=== PATIENT | female | born 1960 | race Caucasian/White ===

== ENCOUNTER 2024-06-10 10:26 | Emergency (ER) | payer OTHER, MEDICAID, SELFPAY ==
[2024-06-10 10:26] VITALS: BP 129/84; PULSE 101; PULSE 130; RESP 20; TEMP 38.1; O2SAT 95
--- NOTE | 2024-06-10 10:42 | XR_ITS ---
Examination: PA lateral chest 2 views TECHNIQUE: Upright PA lateral chest 2 views Exam date and time: June 10, 2024 1055 hours INDICATIONS: Coughing shortness of breath beginning 2 days ago FINDINGS: Normal heart size. Lungs are clear. The osseous structures are intact IMPRESSION: No active disease
--- NOTE | 2024-06-10 10:43 | PD.EDRME ---
Rapid Medical Screening Exam RME Arrival date/time: 06/10/24 10:26 64-year-old female presents emergency department complaints of fever and back pain Chief Complaint: Back Pain/Injury Vital signs: Vital Signs Temperature 100.6 F H 06/10/24 10:26 Pulse Rate 130 H 06/10/24 10:26 Respiratory Rate 20 06/10/24 10:26 Blood Pressure 129/84 06/10/24 10:26 Pulse Oximetry (%) 95 06/10/24 10:26 Oxygen Delivery Method Room Air 06/10/24 10:26
[2024-06-10 11:04] LABS: Lactate (Lactic Acid) 1.3 mMol/L (0.4-2.0)
[2024-06-10 11:08] LABS: Basophils % (Auto) 0 % (0-2.5); Eosinophils # (Auto) 0.1 Thou/mm3 (0.0-0.5); Eosinophils % (Auto) 1 % (0-10); Hematocrit 43.7 % (36.0-46.0); Hemoglobin 14.5 g/dL (12.0-16.0); Immature Granulocytes % (Auto) 1 % (0-0); Immature Granulocytes Auto 0.05 Thou/mm3 (0.00-0.00); Lymphocytes # (Auto) 0.2 Thou/mm3 (1.0-4.8); Lymphocytes % (Auto) 2 % (10-50); Mean Corpuscular HGB Conc 33.2 g/dl (31.0-37.0); Mean Corpuscular Hemoglobin 30.6 pg (25.0-35.0); Mean Corpuscular Volume 92 fL (80-100); Monocytes # (Auto) 0.3 Thou/mm3 (0.0-0.8); Monocytes % (Auto) 3 % (0-12); Neutrophils # (Auto) 8.5 Thou/mm3 (1.8-7.7); Neutrophils % (Auto) 93 % (37-80); Nucleated Red Blood Cell % 0 /100 WBC (0); Platelet Count 256 Thou/mm3 (140-440); RDW Standard Deviation 47.5 fL (36.4-46.3); Red Blood Count 4.74 Miln/mm3 (4.00-5.20); White Blood Count 9.1 Thou/mm3 (3.6-11.0)
[2024-06-10 11:31] LABS: Alanine Aminotransferase 44 U/L (10-49); Albumin, Serum 4.7 gm/dL (3.4-4.8); Albumin/Globulin Ratio 1.5 (1.2-2.2); Alkaline Phosphatase 88 U/L (46-116); Anion Gap 8 (7-16); Aspartate Amino Transferase 46 U/L (0-34); BUN/Creatinine Ratio 16 Ratio (12-20); Bilirubin,Total 0.5 mg/dL (0.3-1.2); Blood Urea Nitrogen 14 mg/dL (9-23); Calcium 10.5 mg/dL (8.3-10.6); Calcium (Corrected) 10.5 mg/dL (8.5-10.1); Carbon Dioxide 26.5 mMol/L (20.0-31.0); Chloride 104 mMol/L (98-107); Creatinine (Component) 0.9 mg/dL (0.6-1.3); Globulin 3.1 gm/dL (2.3-3.5); Glucose 121 mg/dL (74-106); Osmolality,Calculated 277 (275-295); Potassium 4.1 mMol/L (3.4-5.1); Procalcitonin 0.68 ng/ml (0.0-0.49); Sodium 138 mMol/L (136-145); Total Protein 7.8 gm/dL (5.7-8.2); eGFR > 60 See Note
--- NOTE | 2024-06-10 14:14 | PC.NURSE ---
upon calling patient from [facility] informed triage nurse that patient left the ER,
== END 2024-06-10 14:16 | disposition left against medical advice (07) ==
PROVIDERS: Nurse Practitioner Primary Care; Emergency Provider Emergency Medicine; PCP Family Medicine
DX: R50.9 Fever, unspecified (principal); M54.9 Dorsalgia, unspecified; R05.9 Cough, unspecified; R06.02 Shortness of breath; Z53.29 Procedure and treatment not carried out because of patient's decision for other reasons
CPT/HCPCS: 36415; 71046; 80053; 80307; 81001; 83605; 84145; 85025; 87040; 87086; 99281

== ENCOUNTER 2024-06-13 09:18 | Emergency (ER) | payer OTHER, MEDICAID, SELFPAY ==
[2024-06-13] VITALS (15 sets, daily range): BP systolic 90–157; BP diastolic 58–133; PULSE 80–127; RESP 14–38; TEMP 2.7–39.6; O2SAT 83–100; BMI 23.9
--- NOTE | 2024-06-13 | XR_ITS ---
MRI abdomen, without contrast. MRCP Date and time of exam: June 13, 2024 1631 hrs. Indications: Increasing abdominal pain 3 days with fever, chills, muscle aches, epigastric pain, elevated transaminase liver function tests on laboratory examination today, gallbladder wall thickened up to 0.37 cm, bile duct enlarged 0.7 cm on gallbladder sonogram June 13, 2024 12:18 PM Technique: Multiple axial and coronal images of the abdomen have been obtained with the Siemens 1.5T MRI scanner. Images obtained included T1 weighted transverse images, T2-weighted transverse images, T2-weighted transverse images fat-suppressed, T2 weighted haste fat suppressed transverse images, T1 weighted images, in and out of phase images, T2-weighted coronal images, breath hold, T2 weighted haze coronal images as well as T2 weighted coronal thick slab images, MRCP. Findings: Liver sagittal dimension 16 cm, no focal liver lesions No gallstones There is gallbladder sludge No gallbladder wall edema Common bile duct 8 mm no definite stones, however, patient motion does obscure detail of the common bile duct No pancreatic edema Spleen not enlarged Aorta normal size No ascites Minimal perinephric stranding, no hydronephrosis Impression: Suspicious for gallbladder sludge Negative for cholecystitis No common hepatic or common bile duct stones
--- NOTE | 2024-06-13 09:20 | PC.NURSE ---
Pt arrived via ambulance at this time; pt c/o midline sternal chest pain radiating to LUQ abd pain with N/V that started x2 days ago; pt was seen here yesterday but left AMA; pt also c/o dizziness and lightheadedness. Pt tachycardic and tachypneic upon arrival and febrile. Pt only reports hypertension as her PMH.
--- NOTE | 2024-06-13 09:47 | PC.NURSE ---
Ice pack application started at this time.
--- NOTE | 2024-06-13 09:51 | XR_ITS ---
Examination: PA lateral chest 2 views Technique: Upright PA lateral chest 2 views Exam date and time: June 13, 2024 10:11 AM Indications: Onset chest pain beginning 2 days ago Findings: Normal heart size No lobar pneumonia No pulmonary edema. The osseous structures are intact Impression: No lobar pneumonia or pulmonary edema
[2024-06-13 09:58] LABS: Lactate (Lactic Acid) 1.5 mMol/L (0.4-2.0)
[2024-06-13] MEDS: ACETAMINOPHEN 325 MG TABLET 650 MG PO (09:59)
[2024-06-13] MEDS: KETOROLAC INJ 30 MG/ML VIAL 15 MG IVP (09:59)
[2024-06-13] MEDS: SODIUM CHLORIDE 0.9% 1000 ML 1,000 ML 999 ML IV ×3 (10:00→12:51)
[2024-06-13 10:01] LABS: Basophils # (Auto) 0.1 Thou/mm3 (0.0-0.2); Basophils % (Auto) 1 % (0-2.5); Eosinophils # (Auto) 0.2 Thou/mm3 (0.0-0.5); Eosinophils % (Auto) 2 % (0-10); Hematocrit 40.4 % (36.0-46.0); Hemoglobin 13.7 g/dL (12.0-16.0); Immature Granulocytes % (Auto) 0 % (0-0); Immature Granulocytes Auto 0.03 Thou/mm3 (0.00-0.00); Lymphocytes # (Auto) 0.3 Thou/mm3 (1.0-4.8); Lymphocytes % (Auto) 4 % (10-50); Mean Corpuscular HGB Conc 33.9 g/dl (31.0-37.0); Mean Corpuscular Hemoglobin 30.3 pg (25.0-35.0); Mean Corpuscular Volume 89 fL (80-100); Monocytes # (Auto) 0.6 Thou/mm3 (0.0-0.8); Monocytes % (Auto) 7 % (0-12); Neutrophils # (Auto) 7.3 Thou/mm3 (1.8-7.7); Neutrophils % (Auto) 86 % (37-80); Nucleated Red Blood Cell % 0 /100 WBC (0); Platelet Count 165 Thou/mm3 (140-440); RDW Standard Deviation 45.7 fL (36.4-46.3); Red Blood Count 4.52 Miln/mm3 (4.00-5.20); White Blood Count 8.4 Thou/mm3 (3.6-11.0)
--- NOTE | 2024-06-13 10:56 | PC.NURSE ---
Pt ambulated to restroom at this time with strong steady gait independently.
--- NOTE | 2024-06-13 10:58 | EDNOTE_ITS ---
ED Chest Pain RME/HPI General Chief Complaint: Chest Pain Stated Complaint: CHEST PAIN Time Seen by Provider: 06/13/24 09:28 Arrival date/time: 06/13/24 09:18 Limitations: no limitations RME / HPI RME / HPI narrative: DR. AGUILAR MAIN ED EVALUATION: 64-year-old female with a history of hypertension, arthritis, presents to the Emergency Department [facility] with complaint of approximately 2 to 3 days of worsening fevers, chills, diffuse muscle aches, runny nose, cough and chest pain. Chest pain is pleuritic nature, poorly qualified. She notes diffuse joint pain that is a worsening of her chronic arthritis . She has nausea and vomiting, without diarrhea. She denies dysuria or polyurea. Related Data Home Medications ?Medication ?Instructions ?Recorded ?Confirmed Sulfamethoxazole/Trimethoprim DS * 1 tab PO BID #0 tabs 09/17/14 (BACTRIM DS *) carvedilol 12.5 mg tablet (Coreg) 12.5 mg PO BID #0 tabs 09/17/14 estradiol 2 mg tablet 2 mg PO QDAY #0 tabs 09/17/14 medroxyprogesterone 5 mg tablet 5 mg PO QDAY #0 tabs 09/17/14 (Provera) pantoprazole 40 mg tablet,delayed 40 mg PO QDAY ##0 09/17/14 release (Protonix) sertraline 50 mg tablet (Zoloft) 50 mg PO HS #0 tabs 09/17/14 Previous Rx's ?Medication ?Instructions ?Recorded hydrocodone 5 mg-acetaminophen 325 1 tab PO BID PRN pain #20 tabs 03/20/24 mg tablet ibuprofen 800 mg tablet 800 mg PO TID PRN pain #30 tabs 03/20/24 tamsulosin 0.4 mg capsule (Flomax) 0.4 mg PO QDAY #30 caps 03/20/24 amoxicillin 875 mg-potassium 1 tab PO Q12H 5 days #10 tabs 06/13/24 clavulanate 125 mg tablet ibuprofen 600 mg tablet 600 mg PO Q8H PRN pain #14 tabs 06/13/24 Allergies Allergy/AdvReac Type Severity Reaction Status Date / Time NKA* Allergy Uncoded 06/10/24 10:28 Review of Systems Review of Systems Systems Reviewed: All systems reviewed, normal except as documented Narrative Review of Systems: GEN: + fever, + chills, no weight loss EYES: No discharge, no visual changes, no pain HEENT: No ear pain, + runny nose/ congestion, no sore throat PULM: No shortness of breath, + cough CV: + chest pain, no dyspnea on exertion, no palpitations GI: + nausea, + vomiting, no diarrhea, no pain, no constipation : No frequency, no urgency and no dysuria MUSC/SKEL: + diffuse muscle aches, no back pain SKIN: No rash PSYCH: No hallucinations, no depression HEME/LYMPH: No easy bleeding or bruising tendencies NEURO: No weakness, no headache Past Medical History Past Medical History CARDIAC: Positive Hypertension GASTROINTESTINAL: Positive Gastroesophageal Reflux Disease MUSCULOSKELETAL: Positive Arthritis (L knee) Social History SMOKING STATUS: Light (< 1 pack/day) SUBSTANCE USE: does not use ALCOHOL: Never ED Exam General Limitations: Present no limitations General appearance: Present alert and in no apparent distress Head Head exam: Present atraumatic, normocephalic and normal inspection Eye Eye exam: Present normal appearance, PERRL and EOMI ENT ENT exam: Present normal exam, normal oropharynx and mucous membranes moist Neck Neck exam: Present normal inspection, full ROM and trachea midline Chest Chest inspection: Present normal inspection and symmetric chest wall rise Respiratory Respiratory exam: Present normal lung sounds bilaterally Cardiovascular Cardiovascular exam: Present regular rate, normal rhythm and normal heart sounds Abdominal Exam Abdominal exam: Present soft and normal bowel sounds Extremities Exam Extremities exam: Present normal inspection and full ROM Back Exam Back exam: Present normal inspection and full ROM Neurological Exam Neurological exam: Present alert, oriented X3 and CN II-XII intact Psychiatric Psychiatric exam: Present normal affect and normal mood Skin Skin exam: Present warm, dry, intact and normal color Course Course Course Narrative: 923: Sepsis alert initiated. Orders made at this time are congruent with ED Adult Sepsis Order List. Re-evaluation is to be completed. 1000: Fluids started. 1030: Sepsis reassessment performed consisting of lab review, vitals, physical exam including auscultation of heart, lungs, and visual evaluation of capillary refills, mucosal membranes and extremities. Quality Measures none Orders Category Date Time Status Bedside COVID-19 Antigen Test NOW Care 06/13/24 09:51 Completed Bedside Influenza A&B Antigen Test NOW Care 06/13/24 09:51 Completed EKG (ED ONLY) *Do not use* NOW Care 06/13/24 09:20 Completed MRI Screening NOW Care 06/13/24 13:27 Completed EKG (ED Only) Stat Exams 06/13/24 09:20 Ordered MR MRCP Stat Exams 06/13/24 Completed US gall bladder Stat Exams 06/13/24 11:44 Completed XR chest 2V Stat Exams 06/13/24 09:51 Completed CBC Stat Lab 06/13/24 09:35 Completed CMP [Comprehensive Metabolic Panel] Stat Lab 06/13/24 10:22 Completed Lactate (Lactic Acid) Stat Lab 06/13/24 09:35 Completed Procalcitonin Stat Lab 06/13/24 10:22 Completed Troponin I Stat Lab 06/13/24 10:22 Completed Urinalysis Stat Lab 06/13/24 11:11 Completed Acetaminophen Tab [Tylenol Tab] Med 06/13/24 09:53 Discontinued 650 mg PO X1 ONE Diazepam [Valium] Med 06/13/24 14:24 Discontinued 10 mg PO X1 ONE DiphenhydrAMINE INJ [Benadryl Inj] Med 06/13/24 14:25 Discontinued 50 mg IVP X1 ONE Ketorolac Inj [Toradol Inj] Med 06/13/24 09:53 Discontinued 15 mg IVP X1 ONE LORazepam [Ativan Inj] Med 06/13/24 16:11 Discontinued 1 mg IVP X1 ONE Sodium Chloride 0.9% 1000 ml [Ns] 1,000 ml Med 06/13/24 09:53 Discontinued IV 999 mls/hr Sodium Chloride 0.9% 1000 ml [Ns] 1,000 ml Med 06/13/24 09:57 Discontinued IV 999 mls/hr Sodium Chloride 0.9% 1000 ml [Ns] 1,000 ml Med 06/13/24 12:15 Discontinued IV 999 mls/hr Vital Signs Vital signs: Vital Signs Temperature 103.3 F H 06/13/24 09:22 Pulse Rate 127 H 06/13/24 09:22 Respiratory Rate 27 H 06/13/24 09:22 Blood Pressure 122/87 H 06/13/24 09:22 Pulse Oximetry (%) 95 06/13/24 09:22 Oxygen Delivery Method Room Air 06/13/24 09:22 Chest Pain MDM Narrative MDM Narrative:: I, Kaylee Little am scribing for and in the presence of Dr. Aguilar. Patient data External records reviewed:: [facility] previous records (Reviewed last ED visit dated 06/10/24 for back pain.) and EMS form Clinical information provided by:: patient and EMS Social determinants that could affect healthcare access:: other (specify) (Current tobacco smoker) Patient has the following chronic illnesses:: Hypertension, arthritis How is presenting disease/condition affected by chronic disease/condition?: exacerbated by Evaluation data The following diagnostics were reviewed and interpreted by me:: lab results, radiology exam(s) and EKG tracing(s) Lab and/or radiology exams considered but not ordered:: none Interpretation Summary: Procedure(s): XR chest 2V Accession Number(s): [id number] cc: Juan Alberto Aguilar MD; Mahendra Garg MD; Nickolas Thakkar MD~ Examination: PA lateral chest 2 views Technique: Upright PA lateral chest 2 views Exam date and time: June 13, 2024 10:11 AM Indications: Onset chest pain beginning 2 days ago Findings: Normal heart size No lobar pneumonia No pulmonary edema. The osseous structures are intact Impression: No lobar pneumonia or pulmonary edema Dictated By: Mahendra Garg MD Procedure(s): US gall bladder Accession Number(s): [id number] cc: Juan Alberto Aguilar MD; Mahendra Garg MD; Nickolas Thakkar MD~ Examination: Abdomen sonogram, Limited Date and time of exam: June 13, 2024 1218 hrs. Indications: Epigastric pain upper abdominal pain beginning 2 days ago, with elevated transaminase liver function tests on laboratory examination June 13, 2024 Technique: Real-time serra scale transabdominal sonographic images of the upper abdomen obtained. Findings: Negative for gallstones Gallbladder wall is thickened up to 0.37 cm Common bile duct enlarged 0.7 cm no stones noted Pancreatic head 2.0 cm Liver 15.5 cm fatty infiltration smooth contour no focal liver lesions Normal hepatopedal portal venous flow Patent IVC Impression: Cholelithiasis Borderline thickening gallbladder wall 0.37 cm with mildly enlarged common bile duct 0.7 cm If biliary colic is a clinical consideration, consider MRCP follow-up Dictated By: Mahendra Garg MD ===== Ordering Physician: Juan Alberto Aguilar MD Date of Service: 06/13/24 Procedure(s): MR MRCP Accession Number(s): [id number] cc: Juan Alberto Aguilar MD; Mahendra Garg MD; Nickolas Thakkar MD~ MRI abdomen, without contrast. MRCP Date and time of exam: June 13, 2024 1631 hrs. Indications: Increasing abdominal pain 3 days with fever, chills, muscle aches, epigastric pain, elevated transaminase liver function tests on laboratory examination today, gallbladder wall thickened up to 0.37 cm, bile duct enlarged 0.7 cm on gallbladder sonogram June 13, 2024 12:18 PM Technique: Multiple axial and coronal images of the abdomen have been obtained with the Siemens 1.5T MRI scanner. Images obtained included T1 weighted transverse images, T2-weighted transverse images, T2-weighted transverse images fat-suppressed, T2 weighted haste fat suppressed transverse images, T1 weighted images, in and out of phase images, T2-weighted coronal images, breath hold, T2 weighted haze coronal images as well as T2 weighted coronal thick slab images, MRCP. Findings: Liver sagittal dimension 16 cm, no focal liver lesions No gallstones There is gallbladder sludge No gallbladder wall edema Common bile duct 8 mm no definite stones, however, patient motion does obscure detail of the common bile duct No pancreatic edema Spleen not enlarged Aorta normal size No ascites Minimal perinephric stranding, no hydronephrosis Impression: Suspicious for gallbladder sludge Negative for cholecystitis No common hepatic or common bile duct stones Dictated By: Mahendra Garg MD Signed By: <Electronically signed by Mahendra Garg MD in OV> 06/13/24 1721 Medications / Prescriptions Medications or Prescriptions considered but not ordered:: none Medication administrations:: Medication Administration History Discontinued Medications Acetaminophen (Acetaminophen 325 Mg Tablet) 650 mg PO X1 ONE Stop: 06/13/24 09:54 Last Admin: 06/13/24 09:59 Dose: 650 mg Documented By: GM Diazepam (Diazepam 5 Mg Tablet) 10 mg PO X1 ONE Stop: 06/13/24 14:25 Last Admin: 06/13/24 14:29 Dose: 10 mg Documented By: Diphenhydramine HCl (Diphenhydramine Inj 50 Mg/Ml Vial) 50 mg IVP X1 ONE Stop: 06/13/24 14:26 Last Admin: 06/13/24 16:01 Dose: 50 mg Documented By: Sodium Chloride (Ns) 1,000 mls @ 999 mls/hr IV .Q1H1M ONE Stop: 06/13/24 10:53 Last Infusion: 06/13/24 11:24 Dose: Infused Documented By: Admin: 06/13/24 10:00 Dose: 999 mls/hr Documented By: Sodium Chloride (Ns) 1,000 mls @ 999 mls/hr IV .Q1H1M ONE Stop: 06/13/24 10:57 Last Infusion: 06/13/24 12:02 Dose: Infused Documented By: Admin: 06/13/24 10:18 Dose: 999 mls/hr Documented By: Sodium Chloride (Ns) 1,000 mls @ 999 mls/hr IV .Q1H1M ONE Stop: 06/13/24 13:15 Last Infusion: 06/13/24 14:08 Dose: Infused Documented By: [facility] Admin: 06/13/24 12:51 Dose: 999 mls/hr Documented By: Ketorolac Tromethamine (Ketorolac Inj 30 Mg/Ml Vial) 15 mg IVP X1 ONE Stop: 06/13/24 09:54 Last Admin: 06/13/24 09:59 Dose: 15 mg Documented By: Lorazepam (Lorazepam 2 Mg/Ml Vial) 1 mg IVP X1 ONE Stop: 06/13/24 16:12 Last Admin: 06/13/24 16:14 Dose: 1 mg Documented By: GM see above Consultations Consultation(s) initiated? (list below): No Diagnosis Chest Pain Differential Diagnosis: atypical chest pain, costochondritis, chest pain and other (sepsis, pneumonia) Most likely diagnosis given after review of the tests above:: URI, pneumonia, hepatitis Admission Indicated Admission indicated?: not indicated Admission Request Was there a request for admission?: No Disposition Plan Disposition Plan: Discharge Discharge Attestation Discharge Attestation: The patient and all family members were given an opportunity to ask questions and understood the discharge instructions. Discharge instructions specifically effects, indications for sooner follow up or return to the emergency department, and the expected course of current diagnosis. Patient condition: Stable Critical Care Time Critical Care Time Critical Care Time: Yes Total Critical Care Time (min.): 30 Attestation: for sepsis The high probability of sudden, clinically significant deterioration in the patient?s condition required the highest level of my preparedness to intervene urgently. The services I provided to this patient were to treat and/or prevent clinically significant deterioration. Services included the following: chart data review, reviewing nursing notes and/or old charts, documentation time, customer service consultant collaboration regarding findings and treatment options, medication orders and management, direct patient care, vital sign assessments and ordering, interpreting and reviewing diagnostic studies and lab tests. Aggregate critical care time includes only time during which I was engaged in work directly related to the patient?s care, as described above, whether at be [facility] or elsewhere in the Emergency Department. It did not include time spent performing other reported procedures or the services of residents, students, nurses or physician assistants. Discharge Plan Plan Patient Disposition: HOME (Self Care) Patient condition on transfer: Stable Prescriptions/Referrals Prescriptions/Med Rec: New ibuprofen 600 mg tablet 600 mg PO Q8H PRN (Reason: pain) Qty: 14 0RF amoxicillin-pot clavulanate 875-125 mg tablet 1 tab PO Q12H 5 Days Qty: 10 0RF No Action carvedilol [Coreg] 12.5 MG tablet 12.5 mg PO BID Qty: 0 medroxyprogesterone [Provera] 5 MG tablet 5 mg PO QDAY Qty: 0 pantoprazole [Protonix] 40 MG tablet,delayed release (DR/EC) 40 mg PO QDAY Qty: 0 Patient Comments: TO SUPPRESS GASTRIC SECRETIONS estradiol 2 MG tablet 2 mg PO QDAY Qty: 0 sertraline [Zoloft] 50 MG tablet 50 mg PO HS Qty: 0 Sulfamethoxazole/Trimethoprim DS * (BACTRIM DS *) 1 TAB tablet 1 tab PO BID Qty: 0 ibuprofen 800 mg tablet 800 mg PO TID PRN (Reason: pain) Qty: 30 0RF hydrocodone-acetaminophen 5-325 mg tablet 1 tab PO BID MDD 4 PRN (Reason: pain) Qty: 20 0RF tamsulosin [Flomax] 0.4 mg capsule 0.4 mg PO QDAY Qty: 30 0RF Rx Instructions: administer 30 minutes after same meal each day; swallow whole with liquid; do not crush/chew/dissolve/open Referrals: Nickolas Thakkar MD [Primary Care Provider] - In 1 week Problem List Clinical Impression: URI (upper respiratory infection), Hepatitis, Pneumonia Patient/Caregiver Discharge Instructions Education Materials: Tests for Liver Disease, ED Pneumonia (Adult) Additional Instructions: Follow-up with your primary care doctor in 2 to 3 days for recheck and possible further testing for your abnormal liver tests. Please take all antibiotics as prescribed. You can return to the emergency department sooner if symptoms worsen or if you notice any new, concerning issues. Print Language: Kazakh Stand Alone Forms: [employer] Award Info., Patient Portal Info Letter
[2024-06-13 11:00] LABS: Alanine Aminotransferase 165 U/L (10-49); Albumin, Serum 3.6 gm/dL (3.4-4.8); Albumin/Globulin Ratio 1.4 (1.2-2.2); Alkaline Phosphatase 141 U/L (46-116); Anion Gap 4 (7-16); Aspartate Amino Transferase 104 U/L (0-34); BUN/Creatinine Ratio 18 Ratio (12-20); Bilirubin,Total 0.2 mg/dL (0.3-1.2); Blood Urea Nitrogen 14 mg/dL (9-23); Calcium 8.6 mg/dL (8.3-10.6); Calcium (Corrected) 8.9 mg/dL (8.5-10.1); Carbon Dioxide 22.5 mMol/L (20.0-31.0); Chloride 107 mMol/L (98-107); Creatinine (Component) 0.8 mg/dL (0.6-1.3); Estimated Creatinine Clearance 73.3 mL/min (>60); Globulin 2.5 gm/dL (2.3-3.5); Glucose 110 mg/dL (74-106); Osmolality,Calculated 267 (275-295); Potassium 4.8 mMol/L (3.4-5.1); Procalcitonin 0.77 ng/ml (0.0-0.49); Sodium 133 mMol/L (136-145); Total Protein 6.1 gm/dL (5.7-8.2); Troponin I < 0.002 ng/mL (0.0-0.045); eGFR > 60 See Note
[2024-06-13 11:29] LABS: Collection Type, Urine Catheter
[2024-06-13 11:36] LABS: Bilirubin,Urine Negative (Negative); Blood,Urine 2+ (Negative); Clarity,Urine Clear (Clear/Hazy); Color,Urine Yellow (Lt Yel-Yel); Glucose, Urine Negative (Negative); Ketones,Urine Negative (Negative); Leukocyte Esterase,Urine Negative (Negative); Nitrite,Urine Negative (Negative); Protein,Urine Trace (Neg - Trace); RBC,Urine 4 /hpf (0-3); Specific Gravity,Urine 1.024 (1.001-1.035); Squamous Epithelial Cell,Urine 5 /hpf (0-5); Urobilinogen,Urine Negative mg/dL (0.0-1.0); WBC,Urine 1 /hpf (0-5)
--- NOTE | 2024-06-13 11:44 | XR_ITS ---
Examination: Abdomen sonogram, Limited Date and time of exam: June 13, 2024 1218 hrs. Indications: Epigastric pain upper abdominal pain beginning 2 days ago, with elevated transaminase liver function tests on laboratory examination June 13, 2024 Technique: Real-time serra scale transabdominal sonographic images of the upper abdomen obtained. Findings: Negative for gallstones Gallbladder wall is thickened up to 0.37 cm Common bile duct enlarged 0.7 cm no stones noted Pancreatic head 2.0 cm Liver 15.5 cm fatty infiltration smooth contour no focal liver lesions Normal hepatopedal portal venous flow Patent IVC Impression: Cholelithiasis Borderline thickening gallbladder wall 0.37 cm with mildly enlarged common bile duct 0.7 cm If biliary colic is a clinical consideration, consider MRCP follow-up
--- NOTE | 2024-06-13 12:10 | PC.NURSE ---
Dr. Macias made aware that pt's BP 90/78 with a MAP of 80. Verbal orders received for IV NS 1,000mL bolus.
--- NOTE | 2024-06-13 13:55 | PC.NURSE ---
WENT TO DO MRI SCREENING AND PT STATES I CAN'T DO THAT ONE. I'LL FREAK OUT. WILL INFORM
--- NOTE | 2024-06-13 14:00 | PC.NURSE ---
DR. AGUILAR INFORMED ABOUT PT REFUSING MRI
--- NOTE | 2024-06-13 14:25 | PC.NURSE ---
Received verbal orders from Dr. Macias to give 10mg PO of valium and 50mg of benadryl IV push to help with pt's claustrophobia regarding upcoming MRCP. Per Dr. Macias, Ok to give 10mg of valium PO now, but give 50 mg of benadryl IV push before MRI. @1429- Valium 10mg PO given at this time. @1601- RN received call from MRI that they are about to grain picker pt for MRCP; RN at bedside at this time; pt given 50mg of benadryl IV push. @1604- RN reported to Dr. Macias that pt still anxious regarding MRCP and crying; per Dr. Macias, verbal order with readback, give pt 1mg of ativan IV push. @1626- Pt calm at this time now and taken to MRI/MRCP accompanied by senior electronics technician.
[2024-06-13] MEDS: DIAZEPAM 5 MG TABLET 10 MG PO (14:29)
[2024-06-13] MEDS: DiphenhydrAMINE INJ 50 MG/ML VIAL IVP (16:01)
[2024-06-13] MEDS: LORazepam 2 MG/ML VIAL 1 MG IVP (16:14)
--- NOTE | 2024-06-13 18:20 | PC.NURSE ---
RN at bedside and pt is sleeping; Dr. Macias made aware. Per Dr. Macias, ok to let pt continue sleeping before performing PO trial.
--- NOTE | 2024-06-13 18:48 | PC.NURSE ---
PT HEARD CRYING AND MOANING. WHEN WENT IN ROOM, PT SITTING ON SIDE OF ZITA AND STATING I WANT TO GO HOME. INFORMED THAT MD WOULD LIKE HER TO TRY FLUIDS BEFORE SHE LEAVES AND PT REFUSED SAYING I JUST WANT TO GO HOME. WILL ASSIST PT WITH DRESSING AND TAKE TO FROMNT OF E.D. IN WHEELCHAIR
--- NOTE | 2024-06-13 18:52 | PC.NURSE ---
Pt given apple juice at this time; pt drank all of apple juice for PO challenge; pt denies N/V. Pt passed PO challenge at this time.
== END 2024-06-13 18:54 | disposition home or self-care (01) ==
PROVIDERS: Emergency Provider Emergency Medicine; PCP Family Medicine
DX: J18.9 Pneumonia, unspecified organism (principal); J06.9 Acute upper respiratory infection, unspecified; K75.9 Inflammatory liver disease, unspecified; K80.20 Calculus of gallbladder without cholecystitis without obstruction; F17.210 Nicotine dependence, cigarettes, uncomplicated
CPT/HCPCS: 36415; 71046; 76705; 80053; 81001; 83605; 84145; 84484; 85025; 87400; 87811; 93005; 96361; 96374; 96375; 99284; J1200; J1885; J2060; J7030; S8037; 74181; A9270

== ENCOUNTER 2024-07-05 12:29 | Emergency (ER) | payer OTHER, MEDICAID, SELFPAY ==
[2024-07-05 13:20] VITALS: BP 169/98; PULSE 92; RESP 18; TEMP 37.1; O2SAT 97; BMI 25.0
--- NOTE | 2024-07-05 13:39 | XR_ITS ---
Examination: CT brain head without contrast. 2-D sagittal coronal reconstructions Date and time of exam:July 05, 2024 1347 hrs. Indications: Injury with a metal pipe to the head 3 days ago with head pain CTDI: vol (mGy):46.5 DLP: (mGycm):928 Technique: Multiple CT axial sections of the brain have been obtained, 5 mm slice thickness. Contrast has not been administered. 2-D sagittal, coronal reconstructions have been obtained Low dose protocols were performed. One or more of the following dose reduction techniques were used; automated exposure control, adjustment of the mA and/or KV according to patient size, use of iterative reconstruction technique. Findings: No significant ventricular enlargement. Intra-axial or extra-axial hemorrhage density is not seen. No mass effect or midline shift Basal cisterns are not remarkable. Fourth ventricle is midline. Cranial vault intact. Impression: Negative for acute hemorrhage, mass effect or midline shift
--- NOTE | 2024-07-05 13:39 | PD.EDRME ---
Rapid Medical Screening Exam E Arrival date/time: 07/05/24 12:29 64-year-old female reports with complaints of head injury. Patient states metal pipe fell from above hitting her in the head 4 days ago. Patient reports dizziness blurred vision and nausea Chief Complaint: Head Injury Time Seen by Provider: 07/05/24 13:26 Vital signs: Vital Signs Temperature 98.8 F 07/05/24 13:20 Pulse Rate 92 07/05/24 13:20 Respiratory Rate 18 07/05/24 13:20 Blood Pressure 169/98 H 07/05/24 13:20 Pulse Oximetry (%) 97 07/05/24 13:20 Oxygen Delivery Method Room Air 07/05/24 13:20
--- NOTE | 2024-07-05 15:51 | EDNOTE_ITS ---
ED Head Injury RME/HPI General Chief complaint: Head Injury Stated complaint: HEAD PAIN Time Seen by Provider: 07/05/24 13:26 Arrival date/time: 07/05/24 12:29 64-year-old female reports with complaints of head injury. Patient states that a metal pole hit the top of her head approximately 4 days ago. Patient states that she is currently experiencing dizziness vision changes and nausea. Patient states that she has not taken any medications for her symptoms and she denies loss of consciousness ringing in ears shortness of breath or chest pain Limitations: no limitations RME / HPI RME / HPI Narrative: 07/05/24 12:29 64-year-old female reports with complaints of head injury. Patient states metal pipe fell from above hitting her in the head 4 days ago. Patient reports dizziness blurred vision and nausea Related Data Home Medications ?Medication ?Instructions ?Recorded ?Confirmed Sulfamethoxazole/Trimethoprim DS * 1 tab PO BID #0 tabs 09/17/14 (BACTRIM DS *) carvedilol 12.5 mg tablet (Coreg) 12.5 mg PO BID #0 tabs 09/17/14 estradiol 2 mg tablet 2 mg PO QDAY #0 tabs 09/17/14 medroxyprogesterone 5 mg tablet 5 mg PO QDAY #0 tabs 09/17/14 (Provera) pantoprazole 40 mg tablet,delayed 40 mg PO QDAY ##0 09/17/14 release (Protonix) sertraline 50 mg tablet (Zoloft) 50 mg PO HS #0 tabs 09/17/14 Previous Rx's ?Medication ?Instructions ?Recorded hydrocodone 5 mg-acetaminophen 325 1 tab PO BID PRN pain #20 tabs 03/20/24 mg tablet ibuprofen 800 mg tablet 800 mg PO TID PRN pain #30 tabs 03/20/24 tamsulosin 0.4 mg capsule (Flomax) 0.4 mg PO QDAY #30 caps 03/20/24 ibuprofen 600 mg tablet 600 mg PO Q8H PRN pain #14 tabs 06/13/24 Allergies Allergy/AdvReac Type Severity Reaction Status Date / Time NKA* Allergy Uncoded 07/05/24 12:38 Review of Systems Constitutional Constitutional: Denies frequent falls and Reports headache(s) Eyes Eyes: Reports diplopia and Reports floaters ENT Ears, Nose, Mouth, and Throat: Denies disequilibrium, Denies ear discharge, Reports headache(s), Denies neck pain and Denies tinnitus Cardiovascular Cardiovascular: Denies chest pain, Denies dyspnea and Denies syncope Respiratory Respiratory: Denies dyspnea and Denies pain on inspiration Gastrointestinal Gastrointestinal: Reports nausea and Denies vomiting Musculoskeletal Musculoskeletal: Denies back pain and Denies neck pain Integumentary/Breasts Skin/Breast: Denies unusual bruising and Denies wounds Neurologic Neurologic: Denies confusion, Denies convulsions, Denies disequilibrium, Denies frequent falls, Reports headache(s) and Denies syncope Psychiatric Psychiatric: Denies confusion Hematologic/Lymphatic Hematologic/Lymphatic: Denies easy bleeding and Denies easy bruising Past Medical History Past Medical History CARDIAC: Positive Hypertension; Negative Cardiac Disorders or Congestive Heart Failure RESPIRATORY: Negative Chronic Obstructive Pulmonary Disease (COPD) or Asthma GASTROINTESTINAL: Positive Gastroesophageal Reflux Disease GENITOURINARY: Negative Renal Disease MUSCULOSKELETAL: Positive Arthritis (L knee) ENDOCRINE: Negative Diabetes Mellitus Type 1 or Diabetes Mellitus Type 2 HEMATOLOGIC: Negative Sickle Cell Disease Social History SMOKING STATUS: Light (< 1 pack/day) SUBSTANCE USE: does not use ED Exam General Limitations: Present no limitations General appearance: Present alert and in no apparent distress Head Head exam: Present atraumatic Eye Eye exam: Present normal appearance, PERRL and EOMI ENT ENT exam: Present normal exam, normal oropharynx and mucous membranes moist Neck Neck exam: Present normal inspection, full ROM and trachea midline Chest Chest inspection: Present normal inspection and symmetric chest wall rise Respiratory Respiratory exam: Present normal lung sounds bilaterally Cardiovascular Cardiovascular exam: Present regular rate, normal rhythm and normal heart sounds Abdominal Exam Abdominal exam: Present soft and normal bowel sounds Extremities Exam Extremities exam: Present normal inspection and full ROM Back Exam Back exam: Present normal inspection and full ROM Neurological Exam Neurological exam: Present alert, oriented X3 and CN II-XII intact Psychiatric Psychiatric exam: Present normal affect and normal mood Skin Skin exam: Present warm, dry, intact and normal color Course Course Course Narrative: 64-year-old female reports with complaints of symptoms after head injury. Patient's head CT is negative for midline shift or bleeds. Differential diagnosis includes concussion without loss of consciousness, concussion with loss of consciousness, scalp contusion, patient is currently stable nontoxic-appearing with a normal neurological exam she will be discharged home and advised on [id number]-pxkhord medication such as ibuprofen resting and hydrating. She is advised to follow-up with her primary care provider in 24 to 48 hours. Patient is also advised to return to the emergency department if symptoms should worsen Quality Measures none Orders Category Date Time Status CT head/brain wo con Stat Exams 07/05/24 13:39 Completed Vital Signs Vital signs: Vital Signs Temperature 98.8 F 07/05/24 13:20 Pulse Rate 92 07/05/24 13:20 Respiratory Rate 18 07/05/24 13:20 Blood Pressure 169/98 H 07/05/24 13:20 Pulse Oximetry (%) 97 07/05/24 13:20 Oxygen Delivery Method Room Air 07/05/24 13:20 Head Injury Patient data External records reviewed:: None Clinical information provided by:: patient Social determinants that could affect healthcare access:: none Patient has the following chronic illnesses:: none How is presenting disease/condition affected by chronic disease/condition?: no chronic disease Evaluation data The following diagnostics were reviewed and interpreted by me:: radiology exam(s) Lab and/or radiology exams considered but not ordered:: none Interpretation Summary: Head CT is negative for bleeds or midline shift Medications / Prescriptions Medications or Prescriptions considered but not ordered:: None Medication administrations:: None Consultations Consultation(s) initiated? (list below): No Diagnosis Differential diagnosis head injury: concussion without loss of consciousness, closed head injury, subarachnoid hematoma, postconcussion syndrome and concussion with loss of consciousness Most likely diagnosis given after review of the tests above:: Concussion without loss of consciousness Admission Indicated Admission indicated?: not indicated Admission Request Was there a request for admission?: No Disposition Plan Disposition Plan: Discharge Discharge Attestation Discharge Attestation: The patient and all family members were given an opportunity to ask questions and understood the discharge instructions. Discharge instructions specifically effects, indications for sooner follow up or return to the emergency department, and the expected course of current diagnosis. Patient condition: Stable Discharge Plan Plan Patient Disposition: HOME (Self Care) Prescriptions/Referrals Prescriptions/Med Rec: No Action carvedilol [Coreg] 12.5 MG tablet 12.5 mg PO BID Qty: 0 medroxyprogesterone [Provera] 5 MG tablet 5 mg PO QDAY Qty: 0 pantoprazole [Protonix] 40 MG tablet,delayed release (DR/EC) 40 mg PO QDAY Qty: 0 Patient Comments: TO SUPPRESS GASTRIC SECRETIONS estradiol 2 MG tablet 2 mg PO QDAY Qty: 0 sertraline [Zoloft] 50 MG tablet 50 mg PO HS Qty: 0 Sulfamethoxazole/Trimethoprim DS * (BACTRIM DS *) 1 TAB tablet 1 tab PO BID Qty: 0 ibuprofen 800 mg tablet 800 mg PO TID PRN (Reason: pain) Qty: 30 0RF hydrocodone-acetaminophen 5-325 mg tablet 1 tab PO BID MDD 4 PRN (Reason: pain) Qty: 20 0RF tamsulosin [Flomax] 0.4 mg capsule 0.4 mg PO QDAY Qty: 30 0RF Rx Instructions: administer 30 minutes after same meal each day; swallow whole with liquid; do not crush/chew/dissolve/open ibuprofen 600 mg tablet 600 mg PO Q8H PRN (Reason: pain) Qty: 14 0RF Referrals: Nickolas Thakkar MD [Primary Care Provider] - In 1 week Problem List Clinical Impression: Concussion without loss of consciousness Patient/Caregiver Discharge Instructions Discharge Activity: activity as tolerated Education Materials: Coping with Concussion, After a Concussion Additional Instructions: Enclosed instructions regarding your concussion hydrate well take lyir-vfm-ndyrgrm medication such as Tylenol for headaches get plenty of rest and follow-up with your primary care provider in 24 to 48 hours. If your symptoms should worsen return to the emergency department immediately Print Language: Bulgarian Stand Alone Forms: [employer] Award Info., Patient Portal Info Letter
== END 2024-07-05 16:53 | disposition home or self-care (01) ==
PROVIDERS: Emergency Provider Emergency Medicine; PCP Family Medicine
DX: S06.0X0A Concussion without loss of consciousness, initial encounter (principal); W22.8XXA Striking against or struck by other objects, initial encounter
CPT/HCPCS: 70450; 99284

== ENCOUNTER → 2024-11-02 | Outpatient (CLI) | payer OTHER, MEDICAID, SELFPAY ==
[2024-11-02 10:42] LABS: Basophils # (Auto) 0.1 Thou/mm3 (0.0-0.2); Basophils % (Auto) 1 % (0-2.5); Eosinophils # (Auto) 0.2 Thou/mm3 (0.0-0.5); Eosinophils % (Auto) 3 % (0-10); Hematocrit 42.6 % (36.0-46.0); Hemoglobin 13.8 g/dL (12.0-16.0); Immature Granulocytes % (Auto) 0 % (0-0); Immature Granulocytes Auto 0.02 Thou/mm3 (0.00-0.00); Lymphocytes # (Auto) 3.6 Thou/mm3 (1.0-4.8); Lymphocytes % (Auto) 43 % (10-50); Mean Corpuscular HGB Conc 32.4 g/dl (31.0-37.0); Mean Corpuscular Hemoglobin 29.4 pg (25.0-35.0); Mean Corpuscular Volume 91 fL (80-100); Monocytes # (Auto) 0.7 Thou/mm3 (0.0-0.8); Monocytes % (Auto) 9 % (0-12); Neutrophils # (Auto) 3.7 Thou/mm3 (1.8-7.7); Neutrophils % (Auto) 45 % (37-80); Nucleated Red Blood Cell % 0 /100 WBC (0); Platelet Count 293 Thou/mm3 (140-440); RDW Standard Deviation 48.1 fL (36.4-46.3); Red Blood Count 4.69 Miln/mm3 (4.00-5.20); White Blood Count 8.4 Thou/mm3 (3.6-11.0)
[2024-11-02 11:03] LABS: Sed Rate (ESR) 9 mm/hr (0-30)
[2024-11-02 11:45] LABS: Alanine Aminotransferase 15 U/L (10-49); Albumin, Serum 4.3 gm/dL (3.4-4.8); Albumin/Globulin Ratio 1.6 (1.2-2.2); Alkaline Phosphatase 70 U/L (46-116); Anion Gap 5 (7-16); Aspartate Amino Transferase 16 U/L (0-34); BUN/Creatinine Ratio 16 Ratio (12-20); Bilirubin,Total 0.2 mg/dL (0.3-1.2); Blood Urea Nitrogen 16 mg/dL (9-23); Carbon Dioxide 32.3 mMol/L (20.0-31.0); Chloride 105 mMol/L (98-107); Globulin 2.7 gm/dL (2.3-3.5); Glucose 95 mg/dL (74-106); Osmolality,Calculated 284 (275-295); Sodium 142 mMol/L (136-145); eGFR > 60 See Note
[2024-11-02 12:06] LABS: Hepatitis C Antibody Reactive (Non React)
[2024-11-02 12:22] LABS: Glucose Estimated Average 108 mg/dL (80-131); Hemoglobin A1C 5.4 % Hgb (4.8-6.0)
[2024-11-02 12:24] LABS: Uric Acid 5.1 mg/dL (3.1-7.8)
== END | disposition home or self-care (01) ==
LOC: COPL 09:27
PROVIDERS: PCP Family Medicine; Referring Provider Family Medicine; Visit Provider Family Medicine
DX: E11.65 Type 2 diabetes mellitus with hyperglycemia (principal); M54.50 Low back pain, unspecified; B18.2 Chronic viral hepatitis C
CPT/HCPCS: 36415; 80053; 83036; 84550; 85025; 85652; 86803

== ENCOUNTER 2024-12-10 08:08 | Outpatient (AMB) | payer OTHER, MEDICAID, SELFPAY ==
[2024-12-10 08:29] VITALS: BP 148/8; PULSE 97; RESP 19; TEMP 36.3; O2SAT 99; BMI 26.9
--- NOTE | 2024-12-10 08:29 | PD.ORTHCLVIS ---
Vital signs 12/10/24 08:29 Height 1.73 m Height Method Stated Weight 80.428 kg Weight Measurement Method Standing Scale BMI 26.9 BP 148/8 H Blood Pressure Source Automatic Cuff Blood Pressure Location Right Upper Arm Position Sitting Respiration 19 Pulse 97 Pulse Source Monitor Temp 97.3 F Temp Source Temporal Artery Scan Pulse Oximetry (%) 99 Oxygen Delivery Method Room Air Med/Allergies Allergies & Medications Allergies NKA* Allergy (Uncoded 12/10/24 08:30) Medication Reconciliation estradiol 2 mg tablet 2 mg PO QDAY #0 tabs 09/17/14 [History Confirmed 12/10/24] hydrocodone 5 mg-acetaminophen 325 mg tablet 1 tab PO BID PRN pain #20 tabs 03/20/24 [Rx Confirmed 12/10/24] benazepril 40 mg tablet 40 mg PO QDAY 12/10/24 [History Confirmed 12/10/24] dextroamphetamine sulfate 30 mg tablet 30 mg PO QDAY 12/10/24 [History Confirmed 12/10/24] estradiol 2 mg tablet 2 mg PO QDAY 12/10/24 [History Confirmed 12/10/24] furosemide 20 mg tablet 20 mg PO QDAY 12/10/24 [History Confirmed 12/10/24] hydrocodone 10 mg-acetaminophen 325 mg tablet 1 tab PO BID PRN 12/10/24 [History Confirmed 12/10/24] meloxicam 15 mg tablet 15 mg PO QDAY 12/10/24 [History Confirmed 12/10/24] Exam Exam Patient is in no acute distress and is cooperative with the examination today. Breathing is nonlabored. Patient has a normal mood and affect. Bilateral extremities were evaluated and demonstrates sensation intact to light touch. Palpable pedal pulses are present. No significant edema is present. Bilateral hips were examined. The patient has no pain with log roll of the hips. Internal rotation to 30 degrees and external rotation to 30 degrees is painless. Negative FADIR. Right knee was examined today. The right knee is in reasonable alignment. Range of motion from 0-120 degrees. Knee is stable to varus and valgus as well as AP translation with <5mm. Patient has a negative McMurrays. There is no pain with patellofemoral compression and no crepitus noted. The knee is nontender to palpation. Left knee was examined today. The left knee is in Valgus alignment. Range of motion from 0-115 degrees. Knee is stable to varus and valgus as well as AP translation with <5mm. Patient has a negative McMurrays. There is no pain with patellofemoral compression and no crepitus noted. The knee is tender to palpation Laterally X-rays of the left knee were personally reviewed by me. Weightbearing films from 1 year ago demonstrate lateral joint space narrowing of significant severity. Osteophytes are present Assessment and Plan Problem List (1) Arthritis of left knee: Status: Acute Plan: Patient is a 64-year-old female with left knee pain and valgus left knee arthritis. We discussed different treatment options. She has not had any cortisone injections. I would recommend doing 1 as it would help us differentiate the back from the left knee pain as well. I would like to get weightbearing x-rays of the tunnel view Recommend knee cortisone injection as patient would like to proceed with conservative treatment at this time. The risks and benefits of the procedure were reviewed with the patient and patient gave verbal consent to continue with the procedure. Procedure: performed by Dr. Christianson Using sterile technique the left knee was thoroughly prepped with alcohol, and approximately 1 cc of Kenalog 40 mg/mL and 4 cc of 1% lidocaine was injected without resistance into the medial tibial femoral joint space. The patient tolerated the procedure. Advanced Care Planning Discussion Advance care planning discussed with:: patient Office Procedures GNS Level of Care Nursing/Assessment Patient Status: Established Patient Nursing Assessment/Reassesment: Medication Reconciliation, Update PMH in EMR and Vital Signs Coordination of Care: Complex Care and Chronic Disease 1-5, Education Complex Pt/Fam, Consent,records obtained, informed consent, Lab and Imaging orders, Results/Orders obtained and Staff clarify orders Special Needs: Language special needs Established Patient Charge Established Patient Point Assignment: 110 Established Patient Point Charge: EP Level 3 (80-115) Surgical Proc/IM SQ injection Major Surgical Procedure: Yes (KNEE INJECTION ) Medication Given Medication Given Medication Given: Yes Documented Dose Given: 4 Route: Infiitration Medication Given Medication Given Medication Given: Yes Documented Dose Given: 1 Route: Infiitration Office Meds Xylocaine 10 mg/mL (1 %) injection solution Performing Provider: Jaxon Christianson MD Performing Location: [facility] Administered by: Jaxon Christianson MD on 12/10/24 08:58 Dose Route Admin Location Dispensed Lot Number Expiration Date [facility] [employer] 20 mL Infiltration 20 mL [id number] 03/29/28 23446-509-57 [employer] triamcinolone acetonide 40 mg/mL suspension for injection Performing Provider: Jaxon Christianson MD Performing Location: [facility] Administered by: Jaxon Christianson MD on 12/10/24 08:58 Dose Route Admin Location Dispensed Lot Number Expiration Date [facility] [employer] 40 mg intra-articular KNEE 1 mL [id number] 06/28/26 0134-9916-18 [employer] MA Intake Visit Data Collection New Patient or Established: Established Patient (seen at [facility] within 3 years) Reason for Visit:: LEFT KNEE PAIN Seen by Clinical Staff ONLY (RN/MA): No Verbal consent obtained for Telemed visit?: No Media Clerk Required: No PCP or OBGYN visit in last 3 months: Yes Hx Now: No Do You Feel Safe at Home: Yes Authorities Contacted: N/A Questionairres Past Medical History Past Medical History Have you ever been diagnosed with any of the following: Cardiology Problems Congestive Heart Failure: No Hypertension: Yes Respiratory Problems Chronic Obstructive Pulmonary Disease (COPD): No Asthma: No Stomache/Intestinal Problems Gastroesophageal Reflux Disease: Yes Genital/Urinary Problems Renal Disease: No Musculoskeletal Problems Arthritis: Yes (L knee) Endocrine Problems Diabetes Mellitus Type 1: No Diabetes Mellitus Type 2: No Blood Problems Sickle Cell Disease: No Subjective Visit Visit for: new patient and knee Immunization / Flu Flu Vaccine in the Last 12 Months: No Flu Vaccine Exclusion Criteria: No Exclusion Criteria History of Present Illness Chief complaint: LEFT KNEE PAIN Date of injury / onset of symptoms: 2022 Date of 1st surgery (if applicable): DR. SIMS 2022 Patient is a 64-year-old female with left knee pain for 3 years. She had a knee arthroscopy in 2022 where they cleaned up her knee. She reports that the knee pain has been worse since then. She reports there is numbness and tingling starting from her buttocks that radiates down her leg as well. She is on narcotics because of her knee pain in the left lower extremity. Personal History Occupation: RETIRED Red flag PMH: smoker, cigarettes qd (specify) and BMI BMI Counceling provided: Yes Pain Pain level (0-10): 10 Pain duration: ALL DAY Pain location: inside (medial), outside (lateral), anterior and posterior Pain quality: sharp and tingling Pain timing: night and increases with activity Associated signs & symptoms: numbness Ambulatory data Ambulatory device: other (specify) (CRUTCHES) Treatments Improvement with previous injections: No Number of Physical Therapy sessions: 5 Improvement with PT: No Improvement with NSAIDS: no Review of Systems Review of Systems: All systems negative unless otherwise noted in HPI.
--- NOTE | 2024-12-10 08:39 | XR_ITS ---
Examination: Bilateral knees 2 views Right lateral knee left lateral knee 2 views Bilateral axial knees single view TECHNIQUE: Bilateral AP knees standing single view, bilateral PA knees standing single view flexion Standing right lateral knee left lateral knee 2 views Bilateral axial knees single view total 5 views Date and time: December 10, 2024 0904 hours INDICATIONS: Left knee meniscus surgery 1.5 years ago, worsening knee pain right knee swelling 2 months FINDINGS: Prominent osteopenia Severe narrowing, cyjn-oz-lrue lateral joint space left knee Significant osteoarthritis patellofemoral and medial joint spaces left knee Moderate narrowing lateral joint space right knee Mild to moderate osteoarthritis right patellofemoral joint IMPRESSION: Severe narrowing [id number] lateral joint space left knee
== END 2024-12-10 08:58 | disposition home or self-care (01) ==
LOC: HODSRG 08:08
PROVIDERS: PCP Family Medicine; Referring Provider Family Medicine; Supervising Provider Orthopaedic Surgery Adult Reconstructive Orthopaedic Surgery; Visit Provider Orthopaedic Surgery Adult Reconstructive Orthopaedic Surgery
DX: M17.12 Unilateral primary osteoarthritis, left knee (principal); M25.562 Pain in left knee; M21.062 Valgus deformity, not elsewhere classified, left knee; I10 Essential (primary) hypertension; K21.9 Gastro-esophageal reflux disease without esophagitis
CPT/HCPCS: 20610; 73564; 99213; J3301; J3490; G0463

== ENCOUNTER → 2024-12-14 | Outpatient (CLI) | payer OTHER, MEDICAID, SELFPAY ==
[2024-12-14 15:57] LABS: Amphetamine/Methamp Scrn,U Negative (Negative); Barbiturate Screen,Urine Negative (Negative); Benzodiazepines Screen,Urine Negative (Negative); Benzoylecgonine Screen, Ur Negative (Negative); Fentanyl Screen,Urine Negative (Negative); Opiate Screen,Urine Positive (Negative); THC Screen,Urine Negative (Negative)
== END | disposition home or self-care (01) ==
LOC: SLDO 14:02
PROVIDERS: PCP Family Medicine; Referring Provider Family Medicine; Visit Provider Family Medicine
DX: M17.12 Unilateral primary osteoarthritis, left knee (principal); M41.9 Scoliosis, unspecified
CPT/HCPCS: 80307

== ENCOUNTER 2024-12-24 10:56 | Outpatient (AMB) | payer OTHER, MEDICAID, SELFPAY ==
--- NOTE | 2024-12-24 11:08 | PD.ORTHCLVIS ---
Vital signs 12/24/24 11:09 Height 1.73 m Height Method Stated Weight 77.167 kg Weight Measurement Method Standing Scale BMI 25.7 BP 145/90 H Blood Pressure Source Automatic Cuff Blood Pressure Location Left Upper Arm Position Sitting Respiration 18 Pulse 114 H Pulse Source Monitor Temp 97.2 F Temp Source Temporal Artery Scan Pulse Oximetry (%) 98 Oxygen Delivery Method Room Air Med/Allergies Allergies & Medications Allergies NKA* Allergy (Uncoded 12/24/24 11:09) Medication Reconciliation estradiol 2 mg tablet 2 mg PO QDAY #0 tabs 09/17/14 [History Confirmed 12/24/24] hydrocodone 5 mg-acetaminophen 325 mg tablet 1 tab PO BID PRN pain #20 tabs 03/20/24 [Rx Confirmed 12/24/24] benazepril 40 mg tablet 40 mg PO QDAY 12/10/24 [History Confirmed 12/24/24] dextroamphetamine sulfate 30 mg tablet 30 mg PO QDAY 12/10/24 [History Confirmed 12/24/24] estradiol 2 mg tablet 2 mg PO QDAY 12/10/24 [History Confirmed 12/24/24] furosemide 20 mg tablet 20 mg PO QDAY 12/10/24 [History Confirmed 12/24/24] hydrocodone 10 mg-acetaminophen 325 mg tablet 1 tab PO BID PRN 12/10/24 [History Confirmed 12/24/24] meloxicam 15 mg tablet 15 mg PO QDAY 12/10/24 [History Confirmed 12/24/24] Exam Exam Patient is in no acute distress and is cooperative with the examination today. Breathing is nonlabored. Patient has a normal mood and affect. Bilateral extremities were evaluated and demonstrates sensation intact to light touch. Palpable pedal pulses are present. No significant edema is present. Bilateral hips were examined. The patient has no pain with log roll of the hips. Internal rotation to 30 degrees and external rotation to 30 degrees is painless. Negative FADIR. Right knee was examined today. The right knee is in reasonable alignment. Range of motion from 0-120 degrees. Knee is stable to varus and valgus as well as AP translation with <5mm. Patient has a negative McMurrays. There is no pain with patellofemoral compression and no crepitus noted. The knee is nontender to palpation. Left knee was examined today. The left knee is in Valgus alignment. Range of motion from 0-115 degrees. Knee is stable to varus and valgus as well as AP translation with <5mm. Patient has a negative McMurrays. There is no pain with patellofemoral compression and no crepitus noted. The knee is tender to palpation Laterally X-rays of the left knee were personally reviewed by me. Weightbearing films from 1 year ago demonstrate lateral joint space narrowing of significant severity. Osteophytes are present Assessment and Plan Problem List (1) Arthritis of left knee: Status: Acute Plan: Patient is a 64-year-old female with left knee pain and valgus left knee arthritis. We discussed different treatment options. She did well with the last cortisone injection and is very happy. We discussed we will see how she does and see how long the injection lasts before discussing TKA. Advanced Care Planning Discussion Advance care planning discussed with:: patient Office Procedures GNS Level of Care Nursing/Assessment Patient Status: Established Patient Nursing Assessment/Reassesment: Medication Reconciliation, Update PMH in EMR and Vital Signs Coordination of Care: Complex Care and Chronic Disease 1-5, Education Complex Pt/Fam, Consent,records obtained, informed consent, Results/Orders obtained and Staff clarify orders Established Patient Charge Established Patient Point Assignment: 95 Established Patient Point Charge: EP Level 3 (80-115) MA Intake Visit Data Collection New Patient or Established: Established Patient (seen at [facility] within 3 years) Reason for Visit:: XRAY RESULTS Seen by Clinical Staff ONLY (RN/MA): No PCP or OBGYN visit in last 3 months: Yes Hx Now: No Do You Feel Safe at Home: Yes Authorities Contacted: N/A Questionairres Past Medical History Past Medical History Have you ever been diagnosed with any of the following: Cardiology Problems Congestive Heart Failure: No Hypertension: Yes Respiratory Problems Chronic Obstructive Pulmonary Disease (COPD): No Asthma: No Smoking: No Smoking Exposure: No Stomache/Intestinal Problems Gastroesophageal Reflux Disease: Yes Genital/Urinary Problems Renal Disease: No Musculoskeletal Problems Arthritis: Yes (L knee) Endocrine Problems Diabetes Mellitus Type 1: No Diabetes Mellitus Type 2: No Blood Problems Sickle Cell Disease: No Subjective Visit Visit for: follow up visit and x-rays Immunization / Flu Flu Vaccine in the Last 12 Months: No Flu Vaccine Exclusion Criteria: No Exclusion Criteria History of Present Illness Chief complaint: LEFT KNEE PAIN Date of injury / onset of symptoms: 2022 Date of 1st surgery (if applicable): DR. SIMS 2022 Patient is a 64-year-old female with left knee pain for 3 years. She had a knee arthroscopy in 2022 where they cleaned up her knee. She reports that the knee pain has been worse since then. She reports there is numbness and tingling starting from her buttocks that radiates down her leg as well. She is on narcotics because of her knee pain in the left lower extremity. Personal History Occupation: RETIRED Red flag PMH: smoker, cigarettes qd (specify) and BMI BMI Counceling provided: Yes Pain Pain level (0-10): 0 Pain duration: ALL DAY Pain location: inside (medial), outside (lateral), anterior and posterior Pain quality: sharp and tingling Pain timing: night and increases with activity Associated signs & symptoms: numbness Ambulatory data Ambulatory device: other (specify) (CRUTCHES) Treatments Number of previous injections: 1 Improvement with previous injections: Yes Number of Physical Therapy sessions: 5 Improvement with PT: No Improvement with NSAIDS: no Review of Systems Review of Systems: All systems negative unless otherwise noted in HPI.
[2024-12-24 11:09] VITALS: BP 145/90; PULSE 114; RESP 18; TEMP 36.2; O2SAT 98; BMI 25.7
== END 2024-12-24 11:20 | disposition home or self-care (01) ==
LOC: HODSRG 10:56
PROVIDERS: PCP Family Medicine; Referring Provider Family Medicine; Supervising Provider Orthopaedic Surgery Adult Reconstructive Orthopaedic Surgery; Visit Provider Orthopaedic Surgery Adult Reconstructive Orthopaedic Surgery
DX: M17.12 Unilateral primary osteoarthritis, left knee (principal)
CPT/HCPCS: 99213; G0463

== ENCOUNTER 2025-03-16 10:43 | Outpatient (AMB) | payer OTHER, MEDICAID, SELFPAY ==
--- NOTE | 2025-03-16 11:03 | ORTHONT_ITS ---
Vital signs 03/16/25 11:05 Height 1.73 m Height Method Measured Weight 78.273 kg Weight Measurement Method Standing Scale BMI 26.1 BP 126/82 Blood Pressure Source Automatic Cuff Blood Pressure Location Left Upper Arm Position Sitting Respiration 20 Pulse 94 Pulse Source Monitor Temp 97.4 F Temp Source Temporal Artery Scan Pulse Oximetry (%) 97 Oxygen Delivery Method Room Air Med/Allergies Allergies & Medications Allergies NKA* Allergy (Uncoded 03/16/25 11:07) Medication Reconciliation estradiol 2 mg tablet 2 mg PO QDAY #0 tabs 09/17/14 [History Confirmed 03/16/25] hydrocodone 5 mg-acetaminophen 325 mg tablet 1 tab PO BID PRN pain #20 tabs 03/20/24 [Rx Confirmed 03/16/25] benazepril 40 mg tablet 40 mg PO QDAY 12/10/24 [History Confirmed 03/16/25] dextroamphetamine sulfate 30 mg tablet 30 mg PO QDAY 12/10/24 [History Confirmed 03/16/25] estradiol 2 mg tablet 2 mg PO QDAY 12/10/24 [History Confirmed 03/16/25] furosemide 20 mg tablet 20 mg PO QDAY 12/10/24 [History Confirmed 03/16/25] hydrocodone 10 mg-acetaminophen 325 mg tablet 1 tab PO BID PRN 12/10/24 [History Confirmed 03/16/25] meloxicam 15 mg tablet 15 mg PO QDAY 12/10/24 [History Confirmed 03/16/25] Exam Exam Patient is in no acute distress and is cooperative with the examination today. Breathing is nonlabored. Patient has a normal mood and affect. Bilateral extremities were evaluated and demonstrates sensation intact to light touch. Palpable pedal pulses are present. No significant edema is present. Bilateral hips were examined. The patient has no pain with log roll of the hips. Internal rotation to 30 degrees and external rotation to 30 degrees is painless. Negative FADIR. Right knee was examined today. The right knee is in reasonable alignment. Range of motion from 0-120 degrees. Knee is stable to varus and valgus as well as AP translation with <5mm. Patient has a negative McMurrays. There is no pain with patellofemoral compression and no crepitus noted. The knee is nontender to palpation. Left knee was examined today. The left knee is in Valgus alignment. Range of motion from 0-115 degrees. Knee is stable to varus and valgus as well as AP translation with <5mm. Patient has a negative McMurrays. There is no pain with patellofemoral compression and no crepitus noted. The knee is tender to palpation Laterally X-rays of the left knee were personally reviewed by me. Weightbearing films from 1 year ago demonstrate lateral joint space narrowing of significant severity. Osteophytes are present Assessment and Plan Problem List (1) Arthritis of left knee: Status: Acute Plan: Patient is a 64-year-old female with left knee pain and valgus left knee arthritis. We discussed different treatment options. X-rays demonstrate significant arthritis and complete joint space narrowing bilaterally. She hsa failed conservative treatment clued multiple injections and anti-inflammatories The nature and purpose of the total knee replacement, alternative method(s) of treatment, the material risks involved, and the possibility of complications were fully explained to the patient. The patient does NOT have any of the following contraindications to TKA: - Active infection of the knee joint, OR - Active systemic bacteremia, OR - Active skin infection or open wound at surgical site, OR - Neuropathic arthritis, OR - Severe, rapidly progressive neurological disease, OR - Severe medical condition that makes risks of surgery outweigh the potential benefit The patient was told the most common risks and complications associated with a total knee replacement include, but are not limited to: blood clots in the leg, fatal pulmonary embolism, dislocation of the prosthesis, intraoperative and postoperative fractures of the femur or tibia, infection, failure of the prosth esis or grafting materials, complications from anesthesia, reactions to blood transfusions, postoperative leg length inequality, instability of the knee replacement, nerve damage or injury, vascular injury, delayed wound healing, infection, other injury or even . In addition, there are risks associated with anesthesia given during this operation. Also, the patient was told that after undergoing a total knee replacement there may still be persistent pain or disability. The patient was informed that the success of this operation in part depends upon the mechanical devices which are going to be implanted and that these devices can fail or malfunction, and may need to be repaired or replaced and there are no guarantees as to the longevity of this device or its parts and that it or its parts could fail prematurely. The patient was also notified that during the course of surgery, there may be a need to use bone graft from donors, and that any bone graft used will be carefully screened for communicable diseases, including AIDS, hepatitis, Barron-Creutzfeldt, or other diseases, but despite the screening procedures, there is a small chance that they could contract one of these diseases. Finally, the patient was asked to follow completely and fully with all advice and recommended treatments, and that recovery and ultimate outcome are affected by their compliance with recommended treatment. We discussed the risks, benefits and treatment alternatives, and the patient is interested in proceeding with surgery. We will try to set this up as expeditiously as possible. Advanced Care Planning Discussion Advance care planning discussed with:: patient Office Procedures GNS Level of Care Nursing/Assessment Patient Status: Established Patient Nursing Assessment/Reassesment: Medication Reconciliation, Orthostatic Vitals, Update PMH in EMR and Vital Signs Coordination of Care: Complex Care and Chronic Disease 1-5, Education Complex Pt/Fam, Consent,records obtained, informed consent, Results/Orders obtained and Staff clarify orders Established Patient Charge Established Patient Point Assignment: 105 Established Patient Point Charge: EP Level 3 (80-115) Medication Given Medication Given Medication Given: Yes Documented Dose Given: 1 Route: Infiitration Medication Given Medication Given Medication Given: Yes Documented Dose Given: 4 Route: Infiitration Office Meds methylprednisolone acetate 80 mg/mL suspension for injection Performing Provider: Jaxon Christianson MD Performing Location: [facility] Administered by: Jaxon Christianson MD on 03/16/25 11:28 Dose Route Admin Location Dispensed Lot Number Expiration Date [facility] Rehab Physician 80 mg intra-articular 1 mL [id number] 12/25/26 [address]-0 A [facility] ropivacaine (PF) 2 mg/mL (0.2 %) injection solution Performing Provider: Jaxon Christianson MD Performing Location: [facility] Administered by: Jaxon Christianson MD on 03/16/25 11:28 Dose Route Admin Location Dispensed Lot Number Expiration Date 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: No PCP or OBGYN visit in last 3 months: Yes Hx Now: No Do You Feel Safe at Home: Yes Authorities Contacted: N/A Questionairres Past Medical History Past Medical History Have you ever been diagnosed with any of the following: Cardiology Problems Congestive Heart Failure: No Hypertension: Yes Respiratory Problems Chronic Obstructive Pulmonary Disease (COPD): No Asthma: No Smoking: No Smoking Exposure: No Stomache/Intestinal Problems Gastroesophageal Reflux Disease: Yes Genital/Urinary Problems Renal Disease: No Musculoskeletal Problems Arthritis: Yes (L knee) Endocrine Problems Diabetes Mellitus Type 1: No Diabetes Mellitus Type 2: No Blood Problems Sickle Cell Disease: No Subjective Visit Visit for: follow up visit and knee Immunization / Flu Flu Vaccine in the Last 12 Months: No Flu Vaccine Exclusion Criteria: No Exclusion Criteria History of Present Illness Chief complaint: 3 MONTH F/U KNEE INJECTION Date of injury / onset of symptoms: 2022 Date of 1st surgery (if applicable): DR. SIMS 2022 Patient is a 64-year-old female with left knee pain for 3 years. She had a knee arthroscopy in 2022 where they cleaned up her knee. She reports that the knee pain has been worse since then. She reports there is numbness and tingling starting from her buttocks that radiates down her leg as well. She is on narcotics because of her knee pain in the left lower extremity. Personal History Occupation: RETIRED Red flag PMH: smoker, cigarettes qd (specify) and BMI BMI Counceling provided: Yes Pain Pain level (0-10): 9 Pain duration: ALL DAY Pain location: inside (medial), outside (lateral), anterior and posterior Pain quality: sharp and tingling Pain timing: night and increases with activity Associated signs & symptoms: numbness Ambulatory data Ambulatory device: cane and other (specify) (CRUTCHES) Treatments Number of previous injections: 1 Improvement with previous injections: Yes Number of Physical Therapy sessions: 5 Improvement with PT: No Improvement with NSAIDS: no Review of Systems Review of Systems: All systems negative unless otherwise noted in HPI.
[2025-03-16 11:05] VITALS: BP 126/82; PULSE 94; RESP 20; TEMP 36.3; O2SAT 97; BMI 26.1
== END 2025-03-16 11:15 | disposition home or self-care (01) ==
LOC: HODSRG 10:43
PROVIDERS: PCP Family Medicine; Referring Provider Family Medicine; Supervising Provider Orthopaedic Surgery Adult Reconstructive Orthopaedic Surgery; Visit Provider Orthopaedic Surgery Adult Reconstructive Orthopaedic Surgery
DX: M19.072 Primary osteoarthritis, left ankle and foot (principal); M25.562 Pain in left knee; M21.062 Valgus deformity, not elsewhere classified, left knee
CPT/HCPCS: 20610; 99213; J1010; J2795; G0463

== ENCOUNTER → 2025-04-19 | Outpatient (CLI) | payer OTHER, MEDICAID, SELFPAY ==
--- NOTE | 2025-04-19 08:59 | EKG_ITS ---
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
[2025-04-19 09:23] LABS: Basophils # (Auto) 0.1 Thou/mm3 (0.0-0.2); Basophils % (Auto) 1 % (0-2.5); Eosinophils # (Auto) 0.2 Thou/mm3 (0.0-0.5); Eosinophils % (Auto) 2 % (0-10); Hematocrit 44.2 % (36.0-46.0); Hemoglobin 14.4 g/dL (12.0-16.0); Immature Granulocytes Auto 0.02 Thou/mm3 (0.00-0.00); Lymphocytes # (Auto) 3.1 Thou/mm3 (1.0-4.8); Lymphocytes % (Auto) 39 % (10-50); Mean Corpuscular HGB Conc 32.6 g/dl (31.0-37.0); Mean Corpuscular Hemoglobin 30.5 pg (25.0-35.0); Mean Corpuscular Volume 94 fL (80-100); Monocytes # (Auto) 0.7 Thou/mm3 (0.0-0.8); Monocytes % (Auto) 9 % (0-12); Neutrophils # (Auto) 4.0 Thou/mm3 (1.8-7.7); Neutrophils % (Auto) 49 % (37-80); Nucleated Red Blood Cell # 0.00 Thou/mm3 (0.00-0.00); Nucleated Red Blood Cell % 0 /100 WBC (0); Platelet Count 304 Thou/mm3 (140-440); RDW Standard Deviation 46.2 fL (36.4-46.3); Red Blood Count 4.72 Miln/mm3 (4.00-5.20); White Blood Count 8.1 Thou/mm3 (3.6-11.0)
[2025-04-19 09:27] LABS: INR 1.0 (0.9-1.3); Prothrombin Time 11.1 Seconds (9.0-12.2)
[2025-04-19 09:36] LABS: Alanine Aminotransferase 16 U/L (10-49); Albumin, Serum 4.6 gm/dL (3.4-4.8); Albumin/Globulin Ratio 1.5 (1.2-2.2); Alkaline Phosphatase 81 U/L (46-116); Anion Gap 5 (7-16); Aspartate Amino Transferase 19 U/L (0-34); BUN/Creatinine Ratio 14 Ratio (12-20); Bilirubin,Total 0.3 mg/dL (0.3-1.2); Blood Urea Nitrogen 14 mg/dL (9-23); Calcium 10.1 mg/dL (8.3-10.6); Calcium (Corrected) 10.1 mg/dL (8.5-10.1); Carbon Dioxide 33.7 mMol/L (20.0-31.0); Chloride 104 mMol/L (98-107); Creatinine (Component) 1.0 mg/dL (0.6-1.3); Globulin 3.0 gm/dL (2.3-3.5); Glucose 84 mg/dL (74-106); Osmolality,Calculated 284 (275-295); Potassium 3.7 mMol/L (3.4-5.1); Sodium 143 mMol/L (136-145); Total Protein 7.6 gm/dL (5.7-8.2); eGFR > 60 See Note
[2025-04-19 10:00] LABS: Glucose Estimated Average 114 mg/dL (80-131); Hemoglobin A1C 5.6 % Hgb (4.8-6.0)
== END | disposition home or self-care (01) ==
PROVIDERS: PCP Family Medicine; Referring Provider Family Medicine; Visit Provider Family Medicine
DX: E11.22 Type 2 diabetes mellitus with diabetic chronic kidney disease (principal); N18.9 Chronic kidney disease, unspecified
CPT/HCPCS: 36415; 80053; 83036; 85025; 85610; 93005

== ENCOUNTER → 2025-05-14 | Outpatient (CLI) | payer OTHER, MEDICAID, SELFPAY ==
[2025-05-14 14:53] LABS: Amphetamine/Methamp Scrn,U Positive (Negative); Barbiturate Screen,Urine Negative (Negative); Benzodiazepines Screen,Urine Negative (Negative); Benzoylecgonine Screen, Ur Negative (Negative); Fentanyl Screen,Urine Negative (Negative); Opiate Screen,Urine Positive (Negative); THC Screen,Urine Negative (Negative)
[2025-05-14 15:44] LABS: Hepatitis C Antibody Reactive (Non React)
[2025-05-19 23:32] LABS: HCV RNA, PCR <15 NOT DETECTED IU/mL
[2025-05-20 06:32] LABS: HCV RNA, PCR Log IU <1.18 NOT DETECTED Log IU/mL
== END | disposition home or self-care (01) ==
LOC: COPL 14:09
PROVIDERS: PCP Family Medicine; Referring Provider Family Medicine; Visit Provider Family Medicine
DX: M17.12 Unilateral primary osteoarthritis, left knee (principal); M41.9 Scoliosis, unspecified; B18.2 Chronic viral hepatitis C
CPT/HCPCS: 36415; 80307; 86803; 87522

== ENCOUNTER → 2025-05-24 | Outpatient (CLI) | payer OTHER, MEDICAID, SELFPAY ==
--- NOTE | 2025-05-24 10:00 | XR_ITS ---
Examination: CT left lower extremity, without contrast. 2-D sagittal reconstructions. 2-D coronal reconstructions. 3-D reconstructions. Date and time of exam: May 24, 2025 CTDI: vol (mGy): 13.1 DLP: (mGycm): 847 Technique: Multiple 1.25 mm axial sections of the left lower extremity without intravenous contrast have been obtained. 2-D sagittal and coronal reconstructions have been obtained. 3-D reconstructions have been obtained. Low dose protocols were performed. One or more of the following dose reduction techniques were used; automated exposure control, adjustment of the mA and/or KV according to patient size, use of iterative reconstruction technique. Findings: Prominent osteopenia Mild narrowing left hip joint No left hip fracture or dislocation No avascular necrosis Advanced left knee tricompartment osteoarthritis Old depression lateral tibial plateau No acute fracture IMPRESSION: Advanced left knee tricompartment osteoarthritis
--- NOTE | 2025-05-24 10:11 | XR_ITS ---
EXAMINATION: PA lateral chest 2 views TECHNIQUE: Upright PA lateral chest 2 views Date and time: May 24, 2025, 10:42 a.m., comparison June 13, 2024 INDICATIONS: Hypertension history, smoking history chronic FINDINGS: Normal heart size The lungs are clear. Moderate hyperexpansion Moderate thoracic dextroscoliosis On the lateral film 3 mm nodule overlies the dorsal spine IMPRESSION: COPD No pneumonia Recommend 3-month follow-up PA lateral chest to document stability a 3 mm pulmonary nodule described above
== END | disposition home or self-care (01) ==
PROVIDERS: PCP Family Medicine; Referring Provider Orthopaedic Surgery Adult Reconstructive Orthopaedic Surgery; Visit Provider Orthopaedic Surgery Adult Reconstructive Orthopaedic Surgery
DX: J44.9 Chronic obstructive pulmonary disease, unspecified (principal); R91.1 Solitary pulmonary nodule
CPT/HCPCS: 71046; 73700

== ENCOUNTER 2025-06-17 09:20 | Outpatient (AMB) | payer OTHER, MEDICAID, SELFPAY ==
[2025-06-17 09:37] VITALS: BP 143/91; PULSE 92; RESP 20; TEMP 36.4; O2SAT 98; BMI 27.2
--- NOTE | 2025-06-17 09:37 | PD.ORTHCLVIS ---
Vital signs 06/17/25 09:37 Height 1.73 m Height Method Stated Weight 81.448 kg Weight Measurement Method Standing Scale BMI 27.2 BP 143/91 H Blood Pressure Source Automatic Cuff Blood Pressure Location Left Upper Arm Position Sitting Respiration 20 Pulse 92 Pulse Source Monitor Temp 97.6 F Temp Source Temporal Artery Scan Pulse Oximetry (%) 98 Oxygen Delivery Method Room Air Med/Allergies Allergies & Medications Allergies NKA* Allergy (Uncoded 06/17/25 09:38) Medication Reconciliation estradiol 2 mg tablet 2 mg PO QDAY #0 tabs 09/17/14 [History Confirmed 06/17/25] hydrocodone 5 mg-acetaminophen 325 mg tablet 1 tab PO BID PRN pain #20 tabs 03/20/24 [Rx Confirmed 06/17/25] benazepril 40 mg tablet 40 mg PO QDAY 12/10/24 [History Confirmed 06/17/25] dextroamphetamine sulfate 30 mg tablet 30 mg PO QDAY 12/10/24 [History Confirmed 06/17/25] estradiol 2 mg tablet 2 mg PO QDAY 12/10/24 [History Confirmed 06/17/25] furosemide 20 mg tablet 20 mg PO QDAY 12/10/24 [History Confirmed 06/17/25] hydrocodone 10 mg-acetaminophen 325 mg tablet 1 tab PO BID PRN 12/10/24 [History Confirmed 06/17/25] meloxicam 15 mg tablet 15 mg PO QDAY 12/10/24 [History Confirmed 06/17/25] Exam Exam Patient is in no acute distress and is cooperative with the examination today. Breathing is nonlabored. Patient has a normal mood and affect. Bilateral extremities were evaluated and demonstrates sensation intact to light touch. Palpable pedal pulses are present. No significant edema is present. Bilateral hips were examined. The patient has no pain with log roll of the hips. Internal rotation to 30 degrees and external rotation to 30 degrees is painless. Negative FADIR. Right knee was examined today. The right knee is in reasonable alignment. Range of motion from 0-120 degrees. Knee is stable to varus and valgus as well as AP translation with <5mm. Patient has a negative McMurrays. There is no pain with patellofemoral compression and no crepitus noted. The knee is nontender to palpation. Left knee was examined today. The left knee is in Valgus alignment. Range of motion from 0-115 degrees. Knee is stable to varus and valgus as well as AP translation with <5mm. Patient has a negative McMurrays. There is no pain with patellofemoral compression and no crepitus noted. The knee is tender to palpation Laterally X-rays of the left knee were personally reviewed by me. Weightbearing films from 1 year ago demonstrate lateral joint space narrowing of significant severity. Osteophytes are present Assessment and Plan Problem List (1) Arthritis of left knee: Status: Acute Plan: Patient is a 64-year-old female with left knee pain and valgus left knee arthritis. We discussed different treatment options. X-rays demonstrate significant arthritis and complete joint space narrowing bilaterally. She hsa failed conservative treatment and has had multiple injections and anti-inflammatories The nature and purpose of the total knee replacement, alternative method(s) of treatment, the material risks involved, and the possibility of complications were fully explained to the patient. The patient does NOT have any of the following contraindications to TKA: - Active infection of the knee joint, OR - Active systemic bacteremia, OR - Active skin infection or open wound at surgical site, OR - Neuropathic arthritis, OR - Severe, rapidly progressive neurological disease, OR - Severe medical condition that makes risks of surgery outweigh the potential benefit The patient was told the most common risks and complications associated with a total knee replacement include, but are not limited to: blood clots in the leg, fatal pulmonary embolism, dislocation of the prosthesis, intraoperative and postoperative fractures of the femur or tibia, infection, failure of the prosthesis or grafting materials, complications from anesthesia, reactions to blood transfusions, postoperative leg length inequality, instability of the knee replacement, nerve damage or injury, vascular injury, delayed wound healing, infection, other injury or even . In addition, there are risks associated with anesthesia given during this operation. Also, the patient was told that after undergoing a total knee replacement there may still be persistent pain or disability. The patient was informed that the success of this operation in part depends upon the mechanical devices which are going to be implanted and that these devices can fail or malfunction, and may need to be repaired or replaced and there are no guarantees as to the longevity of this device or its parts and that it or its parts could fail prematurely. The patient was also notified that during the course of surgery, there may be a need to use bone graft from donors, and that any bone graft used will be carefully screened for communicable diseases, including AIDS, hepatitis, Barron-Creutzfeldt, or other diseases, but despite the screening procedures, there is a small chance that they could contract one of these diseases. Finally, the patient was asked to follow completely and fully with all advice and recommended treatments, and that recovery and ultimate outcome are affected by their compliance with recommended treatment. We discussed the risks, benefits and treatment alternatives, and the patient is interested in proceeding with surgery. We will try to set this up as expeditiously as possible. (2) Arthritis of left knee: Status: Acute Advanced Care Planning Discussion Advance care planning discussed with:: patient Office Procedures GNS Level of Care Nursing/Assessment Patient Status: Established Patient Nursing Assessment/Reassesment: Medication Reconciliation, Update PMH in EMR and Vital Signs Coordination of Care: Complex Care and Chronic Disease 1-5, Education Complex Pt/Fam, Consent,records obtained, informed consent, Results/Orders obtained and Staff clarify orders Established Patient Charge Established Patient Point Assignment: 95 Established Patient Point Charge: EP Level 3 (80-115) MA Intake Visit Data Collection New Patient or Established: Established Patient (seen at [facility] within 3 years) Reason for Visit:: PRE OP L TKA Seen by Clinical Staff ONLY (RN/MA): No 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 Associate 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: No PCP or OBGYN visit in last 3 months: Yes Hx Now: No Do You Feel Safe at Home: Yes Authorities Contacted: N/A Questionairres Past Medical History Past Medical History Have you ever been diagnosed with any of the following: Cardiology Problems Congestive Heart Failure: No Hypertension: Yes Respiratory Problems Chronic Obstructive Pulmonary Disease (COPD): No Asthma: No Smoking: No Smoking Exposure: No Stomache/Intestinal Problems Gastroesophageal Reflux Disease: Yes Genital/Urinary Problems Renal Disease: No Musculoskeletal Problems Arthritis: Yes (L knee) Endocrine Problems Diabetes Mellitus Type 1: No Diabetes Mellitus Type 2: No Blood Problems Sickle Cell Disease: No Subjective Visit Visit for: follow up visit and knee Immunization / Flu Flu Vaccine in the Last 12 Months: No Flu Vaccine Exclusion Criteria: No Exclusion Criteria History of Present Illness Chief complaint: PRE OP L TKA Date of injury / onset of symptoms: 2022 Date of 1st surgery (if applicable): DR. SIMS 2022 Patient is a 64-year-old female with left knee pain for 3 years. She had a knee arthroscopy in 2022 where they cleaned up her knee. She reports that the knee pain has been worse since then. She reports there is numbness and tingling starting from her buttocks that radiates down her leg as well. She is on narcotics because of her knee pain in the left lower extremity. Personal History Occupation: RETIRED Red flag PMH: smoker, cigarettes qd (specify) and BMI BMI Counceling provided: Yes Additional comments: WALKER GIVEN TO PATIENT Pain Pain level (0-10): 9 Pain duration: ALL DAY Pain location: inside (medial), outside (lateral), anterior and posterior Pain quality: sharp and tingling Pain timing: night and increases with activity Associated signs & symptoms: numbness Ambulatory data Ambulatory device: cane and other (specify) (CRUTCHES) Treatments Number of previous injections: 1 Improvement with previous injections: Yes Number of Physical Therapy sessions: 5 Improvement with PT: No Improvement with NSAIDS: no Review of Systems Review of Systems: All systems negative unless otherwise noted in HPI.
== END 2025-06-17 09:41 | disposition home or self-care (01) ==
LOC: HODSRG 09:20
PROVIDERS: PCP Family Medicine; Referring Provider Family Medicine; Supervising Provider Orthopaedic Surgery Adult Reconstructive Orthopaedic Surgery; Visit Provider Orthopaedic Surgery Adult Reconstructive Orthopaedic Surgery
DX: M25.562 Pain in left knee (principal); M17.12 Unilateral primary osteoarthritis, left knee; M21.062 Valgus deformity, not elsewhere classified, left knee; I10 Essential (primary) hypertension
CPT/HCPCS: 99213; G0463

== ENCOUNTER 2025-07-15 08:00 | Outpatient (AMB) | payer OTHER, SELFPAY ==
--- NOTE | 2025-07-15 08:19 | ORTHONT_ITS ---
Vital signs 07/15/25 08:25 Height 1.73 m Height Method Measured Weight 76.232 kg Weight Measurement Method Standing Scale BMI 25.4 BP 124/86 H Blood Pressure Source Automatic Cuff Blood Pressure Location Left Upper Arm Position Sitting Respiration 18 Pulse 85 Pulse Source Monitor Temp 97.8 F Temp Source Temporal Artery Scan Pulse Oximetry (%) 99 Oxygen Delivery Method Room Air Med/Allergies Allergies & Medications Allergies NKA* Allergy (Uncoded 07/15/25 08:25) Medication Reconciliation estradiol 2 mg tablet 2 mg PO QDAY #0 tabs 09/17/14 [History Confirmed 07/15/25] hydrocodone 5 mg-acetaminophen 325 mg tablet 1 tab PO BID PRN pain #20 tabs 03/20/24 [Rx Confirmed 07/15/25] benazepril 40 mg tablet 40 mg PO QDAY 12/10/24 [History Confirmed 07/15/25] dextroamphetamine sulfate 30 mg tablet 30 mg PO QDAY 12/10/24 [History Confirmed 07/15/25] estradiol 2 mg tablet 2 mg PO QDAY 12/10/24 [History Confirmed 07/15/25] furosemide 20 mg tablet 20 mg PO QDAY 12/10/24 [History Confirmed 07/15/25] hydrocodone 10 mg-acetaminophen 325 mg tablet 1 tab PO BID PRN 12/10/24 [History Confirmed 07/15/25] meloxicam 15 mg tablet 15 mg PO QDAY 12/10/24 [History Confirmed 07/15/25] Exam Exam Patient is in no acute distress and is cooperative with the examination today. Breathing is nonlabored. Patient has a normal mood and affect. Bilateral extremities were evaluated and demonstrates sensation intact to light touch. Palpable pedal pulses are present. No significant edema is present. Bilateral hips were examined. The patient has no pain with log roll of the hips. Internal rotation to 30 degrees and external rotation to 30 degrees is painless. Negative FADIR. Right knee was examined today. The right knee is in reasonable alignment. Range of motion from 0-120 degrees. Knee is stable to varus and valgus as well as AP translation with <5mm. Patient has a negative McMurrays. There is no pain with patellofemoral compression and no crepitus noted. The knee is nontender to palpation. Left knee was examined today. The left knee is in Valgus alignment. Range of motion from 0-115 degrees. Knee is stable to varus and valgus as well as AP translation with <5mm. Patient has a negative McMurrays. There is no pain with patellofemoral compression and no crepitus noted. The knee is tender to palpation Laterally X-rays of the left knee were personally reviewed by me. Weightbearing films from 1 year ago demonstrate lateral joint space narrowing of significant severity. Osteophytes are present Assessment and Plan Problem List (1) Arthritis of left knee: Status: Acute Plan: Patient is a 64-year-old female with left knee pain and valgus left knee arthritis. We discussed different treatment options. X-rays demonstrate significant arthritis and complete joint space narrowing bilaterally. She has failed conservative treatment and has had multiple injections and anti- inflammatories The nature and purpose of the total knee replacement, alternative method(s) of treatment, the material risks involved, and the possibility of complications were fully explained to the patient. The patient does NOT have any of the following contraindications to TKA: - Active infection of the knee joint, OR - Active systemic bacteremia, OR - Active skin infection or open wound at surgical site, OR - Neuropathic arthritis, OR - Severe, rapidly progressive neurological disease, OR - Severe medical condition that makes risks of surgery outweigh the potential benefit The patient was told the most common risks and complications associated with a total knee replacement include, but are not limited to: blood clots in the leg, fatal pulmonary embolism, dislocation of the prosthesis, intraoperative and postoperative fractures of the femur or tibia, infection, failure of the prosthesis or grafting materials, complications from anesthesia, reactions to blood transfusions, postoperative leg length inequality, instability of the knee replacement, nerve damage or injury, vascular injury, delayed wound healing, infection, other injury or even . In addition, there are risks associated with anesthesia given during this operation. Also, the patient was told that after undergoing a total knee replacement there may still be persistent pain or disability. The patient was informed that the success of this operation in part depends upon the mechanical devices which are going to be implanted and that these devices can fail or malfunction, and may need to be repaired or replaced and there are no guarantees as to the longevity of this device or its parts and that it or its parts could fail prematurely. The patient was also notified that during the course of surgery, there may be a need to use bone graft from donors, and that any bone graft used will be carefully screened for communicable diseases, including AIDS, hepatitis, Barron-Creutzfeldt, or other diseases, but despite the screening procedures, there is a small chance that they could contract one of these diseases. Finally, the patient was asked to follow completely and fully with all advice and recommended treatments, and that recovery and ultimate outcome are affected by their compliance with recommended treatment. We discussed the risks, benefits and treatment alternatives, and the patient is interested in proceeding with surgery. We will try to set this up as expeditiously as possible. (2) Arthritis of left knee: Status: Acute Advanced Care Planning Discussion Advance care planning discussed with:: patient Office Procedures GNS Level of Care Nursing/Assessment Patient Status: Established Patient Nursing Assessment/Reassesment: Medication Reconciliation, Update PMH in EMR and Vital Signs Coordination of Care: Complex Care and Chronic Disease 1-5, Education Complex Pt/Fam, Consent,records obtained, informed consent, Results/Orders obtained and Staff clarify orders Established Patient Charge Established Patient Point Assignment: 95 Established Patient Point Charge: EP Level 3 (80-115) MA Intake Visit Data Collection New Patient or Established: Established Patient (seen at [facility] within 3 years) Reason for Visit:: PRE OP LEFT TKA Seen by Clinical Staff ONLY (RN/MA): No Global Sales Director Required: No PCP or OBGYN visit in last 3 months: Yes Hx Now: No Do You Feel Safe at Home: Yes Authorities Contacted: N/A Questionairres Past Medical History Past Medical History Have you ever been diagnosed with any of the following: Cardiology Problems Congestive Heart Failure: No Hypertension: Yes Respiratory Problems Chronic Obstructive Pulmonary Disease (COPD): No Asthma: No Smoking: No Smoking Exposure: No Stomache/Intestinal Problems Gastroesophageal Reflux Disease: Yes Genital/Urinary Problems Renal Disease: No Musculoskeletal Problems Arthritis: Yes (L knee) Endocrine Problems Diabetes Mellitus Type 1: No Diabetes Mellitus Type 2: No Blood Problems Sickle Cell Disease: No Subjective Visit Visit for: follow up visit and knee Immunization / Flu Flu Vaccine in the Last 12 Months: No Flu Vaccine Exclusion Criteria: No Exclusion Criteria History of Present Illness Chief complaint: PRE OP LEFT TKA Date of injury / onset of symptoms: 2022 Date of 1st surgery (if applicable): DR. SIMS 2022 Patient is a 64-year-old female with left knee pain for 3 years. She had a knee arthroscopy in 2022 where they cleaned up her knee. She reports that the knee pain has been worse since then. She reports there is numbness and tingling starting from her buttocks that radiates down her leg as well. She is on narcotics because of her knee pain in the left lower extremity. Personal History Occupation: RETIRED Red flag PMH: smoker, cigarettes qd (specify) and BMI BMI Counceling provided: Yes Additional comments: WALKER GIVEN TO PATIENT Pain Pain level (0-10): 9 Pain duration: ALL DAY Pain location: inside (medial), outside (lateral), anterior and posterior Pain quality: sharp and tingling Pain timing: night and increases with activity Associated signs & symptoms: numbness Ambulatory data Ambulatory device: cane, walker (PATIENT HAS WALKER) and other (specify) (CRUTCHES) Treatments Number of previous injections: 1 Improvement with previous injections: Yes Number of Physical Therapy sessions: 5 Improvement with PT: No Improvement with NSAIDS: no Review of Systems Review of Systems: All systems negative unless otherwise noted in HPI.
[2025-07-15 08:25] VITALS: BP 124/86; PULSE 85; RESP 18; TEMP 36.6; O2SAT 99; BMI 25.4
== END 2025-07-15 08:33 | disposition home or self-care (01) ==
LOC: HODSRG 08:00
PROVIDERS: PCP Family Medicine; Referring Provider Family Medicine; Supervising Provider Orthopaedic Surgery Adult Reconstructive Orthopaedic Surgery; Visit Provider Orthopaedic Surgery Adult Reconstructive Orthopaedic Surgery
DX: M17.12 Unilateral primary osteoarthritis, left knee (principal)
CPT/HCPCS: 99213; G0463